=== PATIENT | male | born 1965 | race Caucasian/White ===

== ENCOUNTER 2017-03-17 05:28 | Emergency (ER) | payer BC ==
[~2017-03-17 05:28] MED LIST: ADVIL PO; BUPROBAN150 MG PO; DIL2TAB PO; NORCO1 TAB PO; PYR200 PO; RAPAFLO8 MG PO; SYN1 PO; XODOL1 TA2 PO
[2017-03-17 05:59] LABS: BASOPHILS 0.2 %; BASOPHILS ABSOLUTE 0.02 10/3/uL (0.0-0.16); EOSINOPHILS 2.2 %; EOSINOPHILS ABSOLUTE 0.22 10/3/uL (0.0-0.53); HEMATOCRIT 44.4 % (40.0-51.0); HEMOGLOBIN 15.3 g/dL (13.6-17.8); IMMATURE GRANULOCYTES 0.3 %; IMMATURE GRANULOCYTES ABSOLUTE 0.03 10/3/uL (0.0-0.11); LYMPHOCYTES 21.2 %; MEAN CORPUS HGB CONC 34.5 g/dL (32.0-36.0); MEAN CORPUSCULAR HEMOGLOB 32.6 pg (26.0-34.0); MEAN PLATELET VOLUME 10.6 fL (9.2-13.0); MONOCYTES 7.6 %; MONOCYTES ABSOLUTE 0.75 10/3/uL (0.21-1.20); NEUTROPHILS 68.5 %; PLATELET COUNT 187 10/3/uL (150-400); RBC DISTRIBUTION WIDTH 13.7 % (12.0-16.0); RED CELL COUNT 4.69 10/6/uL (4.7-6.1); WHITE BLOOD CELLS 9.9 10/3/uL (4.5-10.5)
[2017-03-17 06:02] LABS: MANUAL DIFF NO %; MEAN CORPUSCULAR VOLUME 94.7 fL (80-100)
[2017-03-17 06:13] LABS: CHLORIDE, SERUM 104 MMOL/L (96-112); CO2 (CARBON DIOXIDE) 25 MMOL/L (24-34); GFR AFRICAN AMERICAN 81 ML/MIN (>=60); GFR NON AFRICAN AMERICAN 70 ML/MIN (>=60); POTASSIUM, SERUM 3.8 MMOL/L (3.5-5.3); SODIUM, SERUM 138 MMOL/L (135-148)
[2017-03-17 06:14] LABS: BUN (BLOOD UREA NITROGEN) 14 MG/DL (6-23); CALCIUM, SERUM 9.4 MG/DL (8.5-10.4); GLUCOSE, SERUM 176 MG/DL (60-99)
[2017-03-17 06:23] LABS: ASCORBIC ACID (UR NOT ORDER) NEG (NEG); BILIRUBIN, URINE NEGATIVE (NEG); ER URINALYSIS TAT 0 Hrs 00 Mins; KETONE, URINE NEGATIVE (NEG); LEUKOCYTE ESTERASE(NOT OR NEG (NEG); NITRITE (URINE) NEG (NEG); WBC (NOT ORDERED) (RFLEX) 11 (0-5)
== END 2017-03-17 07:49 | disposition home or self-care (01) ==
LOC: ER 05:28
PROVIDERS: Specialist
DX: N13.2 Hydronephrosis with renal and ureteral calculous obstruction (principal); Z87.442 Personal history of urinary calculi; Z88.0 Allergy status to penicillin; Z79.899 Other long term (current) drug therapy
CPT/HCPCS: 74176; 80048; 81001; 85025; 96374; 96375; 99284; J1170; J2405

== ENCOUNTER 2017-03-20 18:19 | Observation (INO) | payer BC ==
--- NOTE | ~2017-03-20 | OP ---
Record Of Operation [facility] [address] [place]. [address] NAME: CARISA EVANS : 69 STATUS : DIS Negrita PAT#: [id number] AGE: 52 ADM/REG DATE : 03/20/17 MR#: [id number] REPORT SERV DATE: 03/22/17 DICTATED BY: MART RADFORD III PENNYMARLENA DATE: 03/21/17 REPORT STATUS : Draft TRANSCRIBED BY: MODL DATE: 03/21/17 DATE OF PROCEDURE: 03/21/2017 PREOPERATIVE DIAGNOSIS: Left ureteral calculus. POSTOPERATIVE DIAGNOSIS: Left ureteral calculus. PROCEDURE: Cystoscopy, left retrograde pyelogram, left ureteroscopy, laser lithotripsy, basket extraction of stone fragments, and double-J stent placement. SURGEON: Mart Radford M.D. ANESTHESIA: General. SPECIMEN: Stone material. DRAINS: A 6 x 28 cm double-J ureteral stent. INDICATION: Mr. Evans is a 52-year-old, white male, admitted to the hospital now with a proximal left ureteral calculus, this was seen on CT scan. He has a history of uric acid nephrolithiasis, stone is not visible on KUB. Consent is obtained for the above. DESCRIPTION OF PROCEDURE: After consent was obtained, the patient was identified. He was taken to the OR and put to sleep. He was positioned in the low lithotomy position and prepped and draped in usual fashion. The 22-Rwandan cystoscope was made ready and advanced along the course of the urethra into the bladder. The anterior urethra, prostatic urethra, and bladder all appeared normal. The cone-tipped ureteral catheter was flushed with contrast and inserted to the left ureteral orifice. A retrograde pyelogram was obtained showing a filling defect in the distal ureter. A Glidewire was then passed up the left ureter. The ureteral access sheath obturator was then used to dilate the transmural ureter. Rigid ureteroscopy was then performed. The stone was visualized. The 365 Holmium laser fiber was then used to fragment the stone. The pieces were removed with a Nitinol basket. The ureter was reinspected. No significant fragments remained. The guidewire was then back loaded through the cystoscope, which was advanced to the bladder. A 6 x 28 cm stent was then advanced over the wire, and when in position, the wire was removed. The stent was noted to coil in the renal collecting system as well as the bladder. The bladder was then drained. The scope removed. The string was left attached to the stent. This was secured to the patient's penis. The patient was awakened and taken to recovery in stable condition. PH/MODL Mart Radford III, M.D. Record Of [address] [address] NAME: CARISA EVANS EDMARLENA : 69 STATUS : DIS Negrita PAT#: [id number] AGE: 52 ADM/REG DATE : 03/20/17 MR#: [id number] REPORT SERV DATE: 03/22/17 DICTATED BY: MART RADFORD III DATE: 03/21/17 REPORT STATUS : Draft TRANSCRIBED BY: MODAngeline DATE: 03/21/17 / [id number] CC: Mart Radford III, M.D.
--- NOTE | ~2017-03-20 | HP ---
History And Physical [address] [place]. [address] NAME: CARISA EVANS : [birth year] STATUS : ADM Negrita PAT#: [id number] AGE: 52 ADM/REG DATE : 03/20/17 MR#: [id number] REPORT SERV DATE: 03/21/17 DICTATED BY: MART RADFORD III PENNYMARLENA DATE: 03/21/17 REPORT STATUS : Draft TRANSCRIBED BY: MODL DATE: 03/21/17 DATE OF ADMISSION: 03/20/2017 CHIEF COMPLAINT: Left ureteral calculus. HISTORY OF PRESENT ILLNESS: Mr. Evans is a 52-year-old, white male with history of uric acid nephrolithiasis. He has presented to the emergency room for the 2nd time with left flank pain. A CT scan shows a left proximal ureteral calculus. He is to be admitted for pain control and possible manipulation. PAST MEDICAL HISTORY: Nephrolithiasis, arthritis, hypothyroidism, and depression. PAST SURGICAL HISTORY: Lithotripsy x2, ureteroscopy, left knee scope. HOME MEDICATIONS: Reviewed. ALLERGIES: HE IS ALLERGIC TO PENICILLIN. PHYSICAL EXAMINATION: VITAL SIGNS: The patient is afebrile with normal vital signs. LUNGS: Clear. HEART: Regular. ABDOMEN: Soft. He does has some left flank tenderness. IMAGING: CT scan is reviewed. It shows a proximal ureteral calculus. BUN and creatinine are 22 and 1.68. White blood cell count is 9.0. ASSESSMENT: Left ureteral calculus with intractable renal colic. PLAN: Admit for pain control and possible stone manipulation. PH/MODL Mart Radford III, M.D. / [id number] CC: Mart Radford III, M.D.
[2017-03-20 19:32] LABS: BASOPHILS 0.2 %; BASOPHILS ABSOLUTE 0.02 10/3/uL (0.0-0.16); EOSINOPHILS 1.2 %; EOSINOPHILS ABSOLUTE 0.11 10/3/uL (0.0-0.53); ER CBC TAT 0 Hrs 08 Mins; HEMATOCRIT 40.7 % (40.0-51.0); HEMOGLOBIN 14.1 g/dL (13.6-17.8); IMMATURE GRANULOCYTES 0.2 %; IMMATURE GRANULOCYTES ABSOLUTE 0.02 10/3/uL (0.0-0.11); LYMPHOCYTES ABSOLUTE 1.44 10/3/uL (0.67-4.30); MEAN CORPUS HGB CONC 34.6 g/dL (32.0-36.0); MEAN CORPUSCULAR HEMOGLOB 32.3 pg (26.0-34.0); MEAN CORPUSCULAR VOLUME 93.3 fL (80-100); MEAN PLATELET VOLUME 10.6 fL (9.2-13.0); MONOCYTES 9.3 %; MONOCYTES ABSOLUTE 0.84 10/3/uL (0.21-1.20); NEUTROPHILS 73.1 %; NEUTROPHILS ABSOLUTE 6.56 10/3/uL (2.02-8.40); PLATELET COUNT 196 10/3/uL (150-400); RBC DISTRIBUTION WIDTH 13.2 % (12.0-16.0); RED CELL COUNT 4.36 10/6/uL (4.7-6.1)
[2017-03-20 19:33] LABS: MANUAL DIFF NO %
[2017-03-20 19:39] LABS: ASCORBIC ACID (UR NOT ORDER) NEG (NEG); BILIRUBIN, URINE NEGATIVE (NEG); ER URINALYSIS TAT 0 Hrs 15 Mins; KETONE, URINE NEGATIVE (NEG); LEUKOCYTE ESTERASE(NOT OR TRACE (NEG); NITRITE (URINE) NEG (NEG); WBC (NOT ORDERED) (RFLEX) 13 (0-5)
[2017-03-20 19:50] LABS: A/G RATIO 0.9 (0.7-1.9); ALBUMIN 3.8 G/DL (3.5-5.0); ALKALINE PHOSPHATASE 83 U/L (45-117); CALCIUM, SERUM 9.7 MG/DL (8.5-10.4); CHLORIDE, SERUM 102 MMOL/L (96-112); CREATININE 1.68 MG/DL (0.70-1.30); GFR AFRICAN AMERICAN 54 ML/MIN (>=60); GFR NON AFRICAN AMERICAN 47 ML/MIN (>=60); GLOBULIN 4.1 G/DL (2.5-4.1); POTASSIUM, SERUM 4.1 MMOL/L (3.5-5.3); SGPT(ALT) 25 U/L (5-65); SODIUM, SERUM 137 MMOL/L (135-148); TOTAL BILIRUBIN 1.1 MG/DL (0-1.2); TOTAL PROTEIN 7.9 G/DL (6.0-8.5)
[2017-03-20 19:51] LABS: BUN (BLOOD UREA NITROGEN) 22 MG/DL (6-23); CO2 (CARBON DIOXIDE) 31 MMOL/L (24-34); GLUCOSE, SERUM 108 MG/DL (60-99); SGOT(AST) 21 U/L (5-40)
[2017-03-20] MEDS ORDERED: ZOFRAN8 PO (20:30)
[2017-03-20] MEDS ORDERED: FLOMAX4 PO (20:30)
[2017-03-20] MEDS ORDERED: MOBIC15 MG PO (20:31)
[2017-03-20] MEDS ORDERED: SYN1 PO (20:31)
[2017-03-20] MEDS ORDERED: IBU800 PO (20:32)
[2017-03-21] MEDS ORDERED: DIL2TAB PO (16:30)
[2017-03-27 10:02] LABS: STONE COMPOSITION TWO DNR (())
== END 2017-03-21 18:21 | disposition home or self-care (01) ==
LOC: ER 18:19 → 4SO 20:34
PROVIDERS: Emergency Medicine; Urology
PROC: BT1FYZZ Fluoroscopy of Left Kidney, Ureter and Bladder using Other Contrast (ICD-10-PCS; 2017-03-21)
PROC: 0T778DZ Dilation of Left Ureter with Intraluminal Device, Via Natural or Artificial Opening Endoscopic (ICD-10-PCS; principal; 2017-03-21 11:45)
PROC: 0TC78ZZ Extirpation of Matter from Left Ureter, Via Natural or Artificial Opening Endoscopic (ICD-10-PCS; 2017-03-21 11:45)
DX: N20.1 Calculus of ureter (principal); M19.90 Unspecified osteoarthritis, unspecified site; E03.9 Hypothyroidism, unspecified; F32.9 Major depressive disorder, single episode, unspecified; Z87.442 Personal history of urinary calculi; Z98.890 Other specified postprocedural states; Z88.0 Allergy status to penicillin; Z79.899 Other long term (current) drug therapy
CPT/HCPCS: 74000; 74420; 80053; 81001; 82365; 83690; 85025; 96374; 96375; 96376; 99285; A9270-GY; C1769; C2617; G0378; J1170; J1885; J2250; J2405; J2710; J3010; Q9967

== ENCOUNTER 2017-04-12 18:54 | Emergency (ER) | payer BC ==
[~2017-04-12 18:54] MED LIST changes: +FLOMAX4 PO; +IBU800 PO; +MOBIC15 MG PO; +ZOFRAN8 PO
== END 2017-04-12 19:09 | disposition home or self-care (01) ==
LOC: ER 18:54
DX: K08.89 Other specified disorders of teeth and supporting structures (principal); Z87.442 Personal history of urinary calculi; F32.9 Major depressive disorder, single episode, unspecified; Z88.0 Allergy status to penicillin; Z79.899 Other long term (current) drug therapy
CPT/HCPCS: 99282; A9270-GY